=== PATIENT | female | born 1990 | race Caucasian/White ===

== ENCOUNTER 2022-07-17 07:47 | Emergency (ER) | payer OTHER, MEDICAID, SELFPAY ==
[2022-07-17] VITALS (16 sets, daily range): BP systolic 110–134; BP diastolic 66–84; PULSE 53–73; RESP 18; TEMP 36.6; O2SAT 95–100; BMI 33.1
--- NOTE | 2022-07-17 07:47 | ED.ABDPAIN ---
HPI - Abdominal Pain General Chief Complaint: Abdominal Pain Stated Complaint: abd pain Time Seen by Provider: 07/17/22 07:47 Source: patient, EMS and old records reviewed Mode of arrival: EMS Limitations: no limitations History of Present Illness HPI narrative: This is a 32-year-old female with history of asthma, reported history of colitis and gastroparesis which he states was seen on EGD and colonoscopy at [facility] in the past. Patient states she is had at least a month of abdominal pain she describes the sort of centralized. Today worsened and she started having vomiting. She denies fevers she is felt chilled. She denies chest pain or shortness of breath. Patient states that she has had dark stools, she has not noticed any bright red blood or melena. Patient states no DI area currently she is been constipated but did have a bowel movement today. Patient denies dysuria urgency or frequency. She states she just completed her menses. No discharge. She states she is had prior but no other surgeries. She states she is on omeprazole, she is unsure the name of her other medication. No known drug allergies. She does use tobacco, denies alcohol. 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 She uses marijuana but denies other illicit. Patient states she does not have a primary care. States that she got her treatment through [facility]. Related Data Previous Rx's Medication Instructions Recorded meloxicam 7.5 mg tablet 7.5 mg PO BID PRN pain #14 tabs 07/17/22 ondansetron HCl 4 mg tablet 4 mg PO Q6H PRN nausea and 07/17/22 vomiting #5 tabs Allergies Allergy/AdvReac Type Severity Reaction Status Date / Time No Known Drug Allergies Allergy Verified 07/17/22 08:26 Review of Systems Review of Systems ROS Unobtainable: All systems reviewed & are unremarkable except as noted in HPI and below Exam Narrative Exam Narrative: GENERAL: Alert and oriented x three, moderate distress. Patient does appear uncomfortable. Able to transfer from ED gurney to bed independently. HEENT: Head normocephalic, atraumatic, EOMI, pupils reactive, face symmetric, moist mucous membranes NECK: Supple, full range of motion CARDIOVASCULAR: Regular rate and rhythm without murmurs, rubs or gallops. No JVD. No swelling. RESPIRATORY: Breath sounds equal bilaterally, no wheezes rales or rhonchi. No tachypnea accessory muscle use. ABDOMEN: Soft, generalized tenderness. Normoactive bowel sounds all 4 quadrants. No guarding or rebound, rigidity, no mass, nondistended. : No CVA tenderness EXTREMITIES: Normal range of motion, no clubbing or edema. Neurovascularly intact NEUROLOGICAL: Cranial nerves II through XII grossly intact. Moving all extremities SKIN: Warm, dry, no petechiae, no rashes or lesions. Initial Vital Signs Initial Vital Signs: Vital Signs Temperature 98 F 07/17/22 07:47 Pulse Rate 66 07/17/22 07:47 Respiratory Rate 18 07/17/22 07:47 Blood Pressure 110/74 07/17/22 07:47 Pulse Oximetry 100 07/17/22 07:47 Oxygen Delivery Method 07/17/22 07:47 Course Orders Ordered: ED Orders 07/17/22 10:30 CBC Auto Diff [Complete Blood Count AUTO DIFF] Stat CMP [Comprehensive Metabolic Panel] Stat Lactate (Lactic Acid) Stat Lipase Stat Test Serum,Qual Stat Discontinued Medications Sodium Chloride (Normal Saline 0.9%) 1,000 mls @ 1,000 mls/hr IV BOLUS ONE Stop: 07/17/22 08:53 Last Infusion: 07/17/22 09:30 Dose: 0 mls/hr Documented By: Admin: 07/17/22 08:25 Dose: 1,000 mls/hr Documented By: CAROLE Ketorolac Tromethamine (Ketorolac 30 Mg/Ml Vial) 15 mg IV NOW ONE Stop: 07/17/22 07:55 Last Admin: 07/17/22 08:25 Dose: 15 mg Documented By: CAROLE Lorazepam (Lorazepam 2 Mg/Ml Inj) 0.5 mg IV NOW ONE Stop: 07/17/22 07:55 Last Admin: 07/17/22 08:25 Dose: 0.5 mg Documented By: CAROLE Ondansetron HCl (Ondansetron 4 Mg/2 Ml Inj) 4 mg IV NOW ONE Stop: 07/17/22 12:04 Last Admin: 07/17/22 12:26 Dose: 4 mg Documented By: CAROLE(2) Vital Signs Vital signs: Vital Signs - 8 hr 07/17/22 10:30 07/17/22 11:00 07/17/22 11:30 Pulse Rate 71 57 L 57 L Blood Pressure Pulse Oximetry 99 98 99 07/17/22 11:55 07/17/22 11:55 07/17/22 12:00 Pulse Rate 61 Blood Pressure 114/77 117/79 Pulse Oximetry 99 07/17/22 12:00 Pulse Rate 55 L Blood Pressure Pulse Oximetry 99 MDM - Abdominal Pain Lab Data Result diagrams: 07/17/22 10:30 07/17/22 10:30 Labs: Lab Results 07/17/22 07/17/22 07/17/22 Range/Units 10:30 10:30 10:30 WBC 9.1 (4.5-11.0) X10^3/uL RBC 4.63 (4.0-5.2) X10^6/uL Hgb 14.3 (12.0-16.0) g/dL Hct 41.2 (36-46) % MCV 88.9 (80-100) fL MCH 30.9 (26-34) PG MCHC 34.8 (30-36) % RDW 12.8 (11.6-14.8) % Plt Count 225 (150-400) X10^3/uL Neut % (Auto) 82.9 H (50-75) % Lymph % (Auto) 12.5 L (25-40) % [place] % (Auto) 4.2 (3-14) % Eos % (Auto) 0.1 L (2-4) % Baso % (Auto) 0.3 (0-2) % Neut # (Auto) 7600 H (6015-1916) /uL Lymph # (Auto) 1100 (3026-3542) /uL [place] # (Auto) 400 (0-900) /uL Eos # (Auto) 0 (0-450) /uL Baso # (Auto) 0 (0-100) /uL Sodium 138 (137-145) mmol/L Potassium 4.0 (3.4-5.1) mmol/L Chloride 105 (98-107) mmol/L Carbon Dioxide 25 (22-32) mmol/L BUN 17 (7-17) mg/dL Creatinine 0.68 (0.52-1.04) mg/dL Estimated GFR > 60 (>60) mL/min BUN/Creatinine Ratio 25.0 H (6-22) Glucose 88 (70-100) mg/dL Lactate (0.7-2.1) mmol/L Calcium 8.7 (8.4-10.2) mg/dL Total Bilirubin 0.6 (0.2-1.3) mg/dL AST 25 (14-36) IU/L ALT 19 (<35) IU/L Alkaline Phosphatase 76 (38-126) U/L Total Protein 8.0 (6.3-8.2) g/dL Albumin 4.2 (3.5-5.0) g/dL Globulin 3.8 (1.7-4.1) g/dL Albumin/Globulin Ratio 1.1 (1.0-2.8) Lipase 95 (23-300) U/L Serum , Qual Negative (Negative) 07/17/22 Range/Units 10:30 WBC (4.5-11.0) X10^3/uL RBC (4.0-5.2) X10^6/uL Hgb (12.0-16.0) g/dL Hct (36-46) % MCV (80-100) fL MCH (26-34) PG MCHC (30-36) % RDW (11.6-14.8) % Plt Count (150-400) X10^3/uL Neut % (Auto) (50-75) % Lymph % (Auto) (25-40) % [place] % (Auto) (3-14) % Eos % (Auto) (2-4) % Baso % (Auto) (0-2) % Neut # (Auto) (2159-2495) /uL Lymph # (Auto) (3149-7977) /uL [place] # (Auto) (0-900) /uL Eos # (Auto) (0-450) /uL Baso # (Auto) (0-100) /uL Sodium (137-145) mmol/L Potassium (3.4-5.1) mmol/L Chloride (98-107) mmol/L Carbon Dioxide (22-32) mmol/L BUN (7-17) mg/dL Creatinine (0.52-1.04) mg/dL Estimated GFR (>60) mL/min BUN/Creatinine Ratio (6-22) Glucose (70-100) mg/dL Lactate 1.5 (0.7-2.1) mmol/L Calcium (8.4-10.2) mg/dL Total Bilirubin (0.2-1.3) mg/dL AST (14-36) IU/L ALT (<35) IU/L Alkaline Phosphatase (38-126) U/L Total Protein (6.3-8.2) g/dL Albumin (3.5-5.0) g/dL Globulin (1.7-4.1) g/dL Albumin/Globulin Ratio (1.0-2.8) Lipase (23-300) U/L Serum , Qual (Negative) Point of care testing: Point of Care Testing Test Results Negative Urine Dip Bedside Urine Glucose Negative Bedside Urine Bilirubin - Negative Bedside Urine Ketone - Negative Urine Specific [place] 1.010 Bedside Urine Occult Blood - Negative Bedside Urine pH 8.0 Bedside Urine Protein - Negative Bedside Urine Urobilinogen - Negative Bedside Urine Nitrite - Negative Bedside Urine Leukocytes - Negative Esterase ECG Data Attestation: I personally reviewed and interpreted this ECG as follows: Prior ECG tracings: not available for review Interpretation: Sinus rhythm rate of 61 AK 196 QRS is [address] No acute [address] elevation depression noted. No priors for comparison. MDM Narrative Medical decision making narrative: 32-year-old female presents with complaint of acute on chronic abdominal pain with new vomiting patient has had bowel movements she was constipated but did stool today she reports colitis and maybe gastroparesis on EGD colonoscopy through [facility]. Trying to obtain records. Patient had IV access fluids, pain medication antinausea medication, EKG shows sinus rhythm. There was delay in obtaining lab work she is difficult to obtain access or blood. Re-attempted able to get blood. Point of care urine is negative for as well as infection, CBC, CMP, lipase lactate are all negative. Patient's CT abdomen pelvis shows maybe little bit stool but no other acute intra-abdominal changes. Patient has not had any more emesis. Pain has improved she is ambulated several times to the bathroom and is feeling better. Discussed with patient her symptoms may be related somewhat to her gastroparesis history, she is on methadone this is likely contributing. We discussed making sure she is taking a stool softener she has Reglan at home and she states it just was not helpful this morning. She states she will have an episode about every 3 or 4 months. Discussed option for some nonnarcotic pain management in the interim an additional couple tablets of Zofran if Reglan is not adequate at home. Return precautions all questions answered. Patient and family feel comfortable with this plan. Discharge Plan Departure Patient Disposition: Home Clinical Impression: Abdominal pain Instructions: DI for Abdominal Pain-Adult Activity Restrictions/Additional Instructions: Follow-up for recheck for your abdominal pain. Your labs and imaging as well as urine today are overall reassuring. Your imaging shows some increase in stool but no other changes to the organs. You may continue your home medication as prescribed, methadone can sometimes cause constipation so I would take a stool softener such as Colace or senna daily. Methadone can also contribute to slowing your gut and gastroparesis symptoms also. You can take meloxicam 1 tablet every 12 hours as needed. Can take Zofran 1 tablet every 6 hours. Prescription sent to [facility] in [place]. Please return for fevers, persistent vomiting, black or bloody stools, rapidly worsening symptoms or other new or concerning changes. Prescriptions: New ondansetron HCl 4 mg tablet 4 mg PO Q6H PRN (Reason: nausea and vomiting) Qty: 5 0RF meloxicam 7.5 mg tablet 7.5 mg PO BID PRN (Reason: pain) Qty: 14 0RF Referrals: Miscellaneous,Doctor, MD [Primary Care Provider] - Stand Alone Forms: Patient Portal/API
--- NOTE | 2022-07-17 07:54 | DI.CT.S_ITS ---
PROCEDURE: CT ABDOMEN PELVIS W CON INDICATIONS: abd pain, hx colitis and gastroparesis TECHNIQUE: After the administration of intravenous contrast, axial sections acquired from the lung bases to the pubic symphysis. Coronal and sagittal reformats were performed. For radiation dose reduction, the following was used: automated exposure control, adjustment of mA and/or kV according to patient size. COMPARISON: [facility], CT, CT ABDOMEN PELVIS WITH CONTRAST, 11/26/2021, 10:24. FINDINGS: Image quality: Excellent. Lung bases: Clear lung bases. No hiatal hernia. Heart: Normal size heart without pericardial effusion. ABDOMEN: Liver: No masses Gallbladder: Normal wall thickness. Biliary ducts: Nondilated. Pancreas: Normal. Spleen: Normal size. Adrenal Glands: No nodules. Kidneys and Ureters: Normal enhancement. No hydronephrosis or hydroureter. No calcifications. Stomach and Bowel: Slightly increased quantity of solid stool throughout the colon. Stomach, small bowel loops, and colon are otherwise unremarkable. The appendix is normal. Peritoneum: No abnormal intraperitoneal fluid. No free air. Ventral Wall: No hernias. Abdominal Nodes: No retroperitoneal or mesenteric adenopathy by size criteria. Vessels: Aorta and inferior vena cava are normal in size. PELVIS: Pelvic Organs: The uterus appears normal. Ovaries were not well seen by CT.. Bladder: Normal wall thickness. No stones. Pelvic Nodes: No enlarged lymph nodes. Miscellaneous: No hernias are seen. Bones: Unremarkable. IMPRESSION: 1. Mildly increased colonic stool burden. Otherwise normal CT. Dictated by: Shawna Gonsalez M.D. on 07/17/2022 at 10:11 Approved by: Shawna Gonsalez M.D. on 07/17/2022 at 10:17
[2022-07-17] MEDS: KETOROLAC 30 MG/ML VIAL 15 MG IV (08:25)
[2022-07-17] MEDS: SODIUM CHLORIDE 0.9% 1,000 ML 1000 ML IV (08:25)
[2022-07-17] MEDS: LORazepam 2 MG/ML INJ 0.5 MG IV (08:25)
[2022-07-17 10:40] LABS: Add Manual Diff / Slide Review NO; Basophils Absolute Auto 0 /uL (0-100); Basophils Percent Auto 0.3 % (0-2); Eosinophils Absolute Auto 0 /uL (0-450); Eosinophils Percent Auto 0.1 % (2-4); Hematocrit 41.2 % (36-46); Hemoglobin 14.3 g/dL (12.0-16.0); Lymphocytes Absolute Auto 1100 /uL (1100-4500); Lymphocytes Percent Auto 12.5 % (25-40); Mean Corpuscular HGB Conc 34.8 % (30-36); Mean Corpuscular Hemoglobin 30.9 PG (26-34); Mean Corpuscular Volume 88.9 fL (80-100); Monocytes Absolute Auto 400 /uL (0-900); Monocytes Percent Auto 4.2 % (3-14); Neutrophils Absolute Auto 7600 /uL (1500-7000); Neutrophils Percent Auto 82.9 % (50-75); Platelet Count 225 X10^3/uL (150-400); Red Blood Cell Count 4.63 X10^6/uL (4.0-5.2); Red Cell Distribution Width 12.8 % (11.6-14.8); White Blood Cell Count 9.1 X10^3/uL (4.5-11.0)
[2022-07-17 10:53] LABS: Alanine Aminotransferase 19 IU/L (<35); Albumin 4.2 g/dL (3.5-5.0); Albumin Globulin Ratio 1.1 (1.0-2.8); Alkaline Phosphatase 76 U/L (38-126); Aspartate Aminotransferase 25 IU/L (14-36); Bilirubin Total 0.6 mg/dL (0.2-1.3); Blood Urea Nitrogen 17 mg/dL (7-17); Calcium 8.7 mg/dL (8.4-10.2); Carbon Dioxide 25 mmol/L (22-32); Chloride 105 mmol/L (98-107); Estimated Glomerular Filt Rate > 60 mL/min (>60); Globulin 3.8 g/dL (1.7-4.1); Glucose 88 mg/dL (70-100); HEMOLYSIS < 15 (0-50); Lactate (Lactic Acid) 1.5 mmol/L (0.7-2.1); Lipase 95 U/L (23-300); Sodium 138 mmol/L (137-145)
[2022-07-17 11:12] LABS: Pregnancy Test Serum,Qual Negative (Negative)
[2022-07-17] MEDS: ONDANSETRON 4 MG/2 ML INJ IV (12:26)
== END 2022-07-17 12:29 | disposition home or self-care (01) ==
PROVIDERS: Emergency Provider Emergency Medicine
DX: R10.9 Unspecified abdominal pain (principal)
CPT/HCPCS: 36415; 74177; 80053; 81003; 81025; 83605; 83690; 84703; 85025; 93005; 96361; 96374; 96375; 99284; J1885; J2060; J2405; Q9967

== ENCOUNTER 2023-07-13 19:32 | Emergency (ER) | payer OTHER, MEDICAID, SELFPAY ==
[2023-07-13 19:39] VITALS: BP 147/79; PULSE 90; RESP 20; TEMP 36.6; O2SAT 98; BMI 29.5
--- NOTE | 2023-07-13 20:28 | ED_ITS ---
HPI - Nausea/Vomiting/Diarrhea General Chief complaint: Nausea/Vomiting/Diarrhea Stated complaint: NVD Time Seen by Provider: 07/13/23 19:51 Source: patient Mode of arrival: Ambulatory History of Present Illness HPI Narrative: Patient is a 33-year-old female. Has had issues with abdominal discomfort and irregular bowel movements and nausea and vomiting in the past. Does have referral to see GI. Has seen GI in the past. Has had a colonoscopy in the past but she states that it was inconclusive because of a incomplete prep. She is here for 4-5 days of abdominal discomfort and nausea and vomiting. She states she is having loose stools. The abdominal discomfort is in her lower abdomen and left side of her abdomen and has not changed during this time but just has not improved either. This is similar to her prior GI episodes in the past. No recent travel. No recent antibiotics. She was seen at the urgent care 2 times in the past 24 hours. She received Zofran which he states is not helping her nausea. She did think that the GI cocktail that she received during 1 of these visits did improve her abdominal discomfort somewhat. Related Data Previous Rx's Medication Instructions Recorded meloxicam 7.5 mg tablet 7.5 mg PO BID PRN pain #14 tabs 07/17/22 ondansetron HCl 4 mg tablet 4 mg PO Q6H PRN nausea and 07/17/22 vomiting #5 tabs metoclopramide HCl 10 mg tablet 10 mg PO Q6H PRN nausea and 07/13/23 (Reglan) vomiting #20 tabs Allergies Allergy/AdvReac Type Severity Reaction Status Date / Time No Known Drug Allergies Allergy Verified 07/13/23 19:49 Review of Systems Constitutional Constitutional: Reports system reviewed and no additional complaints, except as documented Gastrointestinal Gastrointestinal: Reports system reviewed and no additional complaints, except as documented Genitourinary Genitourinary: Reports system reviewed and no additional complaints, except as documented Integumentary/Breasts Skin/Breast: Reports system reviewed and no additional complaints, except as documented Neurologic Neurologic: Reports system reviewed and no additional complaints, except as documented Hematologic/Lymphatic On Anticoagulants: No Patient History Social History Smoking Status: Current every day smoker Smoking Status: Current every day smoker tobacco type: cigarettes alcohol intake frequency: 0-2 drinks per day Substance Use Type: marijuana Exam Initial Vital Signs Initial Vital Signs: Vital Signs Temperature 97.8 F 07/13/23 19:39 Pulse Rate 90 07/13/23 19:39 Respiratory Rate 20 07/13/23 19:39 Blood Pressure 147/79 H 07/13/23 19:39 Pulse Oximetry 98 07/13/23 19:39 Oxygen Delivery Method Room Air 07/13/23 19:39 HENMT Head: normal to inspection Resp Effort & Inspection: normal respiratory effort Cardio Rate: regular rate GI Inspection: non-distended Neuro General: patient alert, patient awake and moves all extremities Extrem General: normal to inspection Course Orders Ordered: ED Orders 07/13/23 21:04 Complete Blood Count AUTO DIFF Stat Comprehensive Metabolic Panel Stat Lipase Stat Discontinued Medications Sodium Chloride (Normal Saline 0.9%) 1,000 mls @ 1,000 mls/hr IV BOLUS ONE Stop: 07/13/23 21:27 Last Infusion: 07/13/23 21:47 Dose: Infused Documented By: Admin: 07/13/23 20:48 Dose: 1,000 mls/hr Documented By: CAROLE Metoclopramide HCl (Metoclopramide 10 Mg/2 Ml Inj) 10 mg IV NOW ONE Stop: 07/13/23 20:29 Last Admin: 07/13/23 20:48 Dose: 10 mg Documented By: CAROLE Pantoprazole Sodium (Pantoprazole 40 Mg Vial) 40 mg IV NOW ONE Stop: 07/13/23 20:29 Last Admin: 07/13/23 20:48 Dose: 40 mg Documented By: CAROLE Vital Signs Vital signs: Vital Signs - 8 hr 07/13/23 19:39 07/13/23 22:21 Temperature 97.8 F Pulse Rate 90 67 Respiratory Rate 20 14 Blood Pressure 147/79 H 117/71 Pulse Oximetry 98 98 Oxygen Delivery Method Room Air Room Air MDM - Nausea/Vomiting/Diarrhea Lab Data Attestation: I reviewed the patient's lab results. 07/13/23 21:04 07/13/23 21:04 Labs: Lab Results 07/13/23 Range/Units 21:04 WBC 9.7 (4.5-11.0) X10^3/uL RBC 4.48 (4.0-5.2) X10^6/uL Hgb 14.4 (12.0-16.0) g/dL Hct 40.6 (36-46) % MCV 90.8 (80-100) fL MCH 32.2 (26-34) PG MCHC 35.5 (30-36) % RDW 12.6 (11.6-14.8) % Plt Count 295 (150-400) X10^3/uL Neut % (Auto) 83.4 H (50-75) % Lymph % (Auto) 11.2 L (25-40) % [place] % (Auto) 5.1 (3-14) % Eos % (Auto) 0.0 L (2-4) % Baso % (Auto) 0.3 (0-2) % Neut # (Auto) 8100 H (4326-8549) /uL Lymph # (Auto) 1100 (6636-6313) /uL [place] # (Auto) 500 (0-900) /uL Eos # (Auto) 0 (0-450) /uL Baso # (Auto) 0 (0-100) /uL Sodium 138 (137-145) mmol/L Potassium 3.8 (3.4-5.1) mmol/L Chloride 102 (98-107) mmol/L Carbon Dioxide 24 (22-32) mmol/L BUN 13 (7-17) mg/dL Creatinine 0.83 (0.52-1.04) mg/dL Estimated GFR > 60 (>60) mL/min BUN/Creatinine Ratio 15.7 (6-22) Glucose 108 H (70-100) mg/dL Calcium 9.7 (8.4-10.2) mg/dL Total Bilirubin 0.7 (0.2-1.3) mg/dL AST 22 (14-36) IU/L ALT 16 (<35) IU/L Alkaline Phosphatase 48 (38-126) U/L Total Protein 8.7 H (6.3-8.2) g/dL Albumin 4.8 (3.5-5.0) g/dL Globulin 3.9 (1.7-4.1) g/dL Albumin/Globulin Ratio 1.2 (1.0-2.8) Lipase 68 (23-300) U/L [facility] Narrative Medical decision making narrative: Improvement of symptoms after Reglan. Has not vomited since being here in the ER. Labs are unremarkable. Has a benign exam. Will hold on radiologic studies for now. I will provide a prescription for Reglan. Unfortunately I do not have a prepack to send her home with. She will have to use the Zofran until tomorrow. She was advised that she needs to follow-up with GI. She was given return precautions. She expressed understanding and agreement. Discharge Plan Departure Patient Disposition: Home Clinical Impression: Nausea and vomiting, Abdominal pain Instructions: DI for Abdominal Pain-Adult, Nausea and Vomiting-Adult Activity Restrictions/Additional Instructions: I do recommend that you continue with the follow-up with GI as you may need a repeat colonoscopy or upper endoscopy. Use the nausea medication as needed. It was sent to [facility]. Also recommend a bland diet. You can consider taking a medicine called famotidine/Pepcid. You can purchase this [id number]. Return to the emergency department for new symptoms. Prescriptions: New metoclopramide HCl [Reglan] 10 mg tablet 10 mg PO Q6H PRN (Reason: nausea and vomiting) Qty: 20 0RF No Action ondansetron HCl 4 mg tablet 4 mg PO Q6H PRN (Reason: nausea and vomiting) Qty: 5 0RF meloxicam 7.5 mg tablet 7.5 mg PO BID PRN (Reason: pain) Qty: 14 0RF Referrals: Miscellaneous,Doctor, MD [Primary Care Provider] - Stand Alone Forms: Patient Portal/API
[2023-07-13] MEDS: PANTOPRAZOLE 40 MG VIAL IV (20:48)
[2023-07-13] MEDS: SODIUM CHLORIDE 0.9% 1,000 ML 1000 ML IV (20:48)
[2023-07-13] MEDS: METOCLOPRAMIDE 10 MG/2 ML INJ IV (20:48)
[2023-07-13 21:17] LABS: Add Manual Diff / Slide Review NO; Basophils Absolute Auto 0 /uL (0-100); Basophils Percent Auto 0.3 % (0-2); Eosinophils Absolute Auto 0 /uL (0-450); Hematocrit 40.6 % (36-46); Hemoglobin 14.4 g/dL (12.0-16.0); Lymphocytes Absolute Auto 1100 /uL (1100-4500); Lymphocytes Percent Auto 11.2 % (25-40); Mean Corpuscular HGB Conc 35.5 % (30-36); Mean Corpuscular Hemoglobin 32.2 PG (26-34); Mean Corpuscular Volume 90.8 fL (80-100); Monocytes Absolute Auto 500 /uL (0-900); Monocytes Percent Auto 5.1 % (3-14); Neutrophils Absolute Auto 8100 /uL (1500-7000); Neutrophils Percent Auto 83.4 % (50-75); Platelet Count 295 X10^3/uL (150-400); Red Blood Cell Count 4.48 X10^6/uL (4.0-5.2); Red Cell Distribution Width 12.6 % (11.6-14.8); White Blood Cell Count 9.7 X10^3/uL (4.5-11.0)
[2023-07-13 21:32] LABS: Alanine Aminotransferase 16 IU/L (<35); Albumin 4.8 g/dL (3.5-5.0); Albumin Globulin Ratio 1.2 (1.0-2.8); Alkaline Phosphatase 48 U/L (38-126); Aspartate Aminotransferase 22 IU/L (14-36); BUN Creatinine Ratio 15.7 (6-22); Bilirubin Total 0.7 mg/dL (0.2-1.3); Blood Urea Nitrogen 13 mg/dL (7-17); Calcium 9.7 mg/dL (8.4-10.2); Carbon Dioxide 24 mmol/L (22-32); Chloride 102 mmol/L (98-107); Estimated Glomerular Filt Rate > 60 mL/min (>60); Globulin 3.9 g/dL (1.7-4.1); Glucose 108 mg/dL (70-100); HEMOLYSIS < 15 (0-50); Lipase 68 U/L (23-300); Potassium 3.8 mmol/L (3.4-5.1); Sodium 138 mmol/L (137-145); Total Protein 8.7 g/dL (6.3-8.2)
[2023-07-13 22:21] VITALS: BP 117/71; PULSE 67; RESP 14; O2SAT 98
== END 2023-07-13 22:22 | disposition home or self-care (01) ==
PROVIDERS: Emergency Provider Emergency Medicine
DX: R11.2 Nausea with vomiting, unspecified (principal); R10.32 Left lower quadrant pain
CPT/HCPCS: 36415; 80053; 83690; 85025; 96361; 96374; 96375; 99284; C9113; J2765